=== PATIENT | male | born 1960 | race Caucasian/White ===

== ENCOUNTER → 2017-01-03 | Outpatient (CLI) | payer OTHER ==
[~2017-01-03] MED LIST: CLEOCIN HCL300 MG PO; GLUCOPHAGE500 M1 PO; HUMALOG 751 UNIT/0.0 SC; ULTRAM50 MG PO; [UNRECOGNIZED DRUG - REMARK] PO
[2017-01-03 09:09] LABS: BASO # 0.1 10*3/uL (0.0-0.1); BASO % 0.6 % (0.0-1.0); EOS # 0.2 10*3/uL (0.0-0.4); EOS % 1.9 % (1.0-4.0); HEMATOCRIT 50.7 % (42.0-52.0); HEMOGLOBIN 18.1 g/dl (14.0-18.0); LYMPH # 2.4 10*3/uL (1.3-4.4); LYMPH % 30.8 % (27.0-41.0); MEAN CELL VOLUME 87.9 fl (80.0-94.0); MEAN CORPUSCULAR HGB 31.4 pg (27.0-31.0); MEAN CORPUSCULAR HGB CONC 35.7 g/dl (33.0-37.0); MEAN PLATELET VOLUME 10.6 fl (9.6-12.3); MONO # 0.4 10*3/uL (0.1-1.0); MONO % 5.6 % (3.0-9.0); NEUT # 4.7 10*3/uL (2.3-7.9); NEUT % 60.7 % (47.0-73.0); PLATELET COUNT AUTOMATED 279 10*3/uL (130-400); RED BLOOD COUNT 5.77 10*6/uL (4.50-5.90); RED CELL DISTRI WIDTH 11.6 % (0-14.5); WHITE BLOOD COUNT 7.7 10*3/uL (4.8-10.8)
[2017-01-03 09:16] LABS: BILIRUBIN NEGATIVE (NEGATIVE); BLOOD NEGATIVE (NEGATIVE); CLARITY CLEAR (CLEAR); COLOR YELLOW (YELLOW); GLUCOSE 3+ (NEGATIVE); KETONE 2+ (NEGATIVE); LEUKO ESTERASE NEGATIVE (NEGATIVE); NITRITE NEGATIVE (NEGATIVE); PH 5.5 (5.0-9.0); UROBILINOGEN 0.2 E.U./dl (0.2-1.0)
[2017-01-03 09:20] LABS: ALBUMIN 3.9 gm/dl (3.1-4.5); ALKALINE PHOSPHATASE 83 U/L (45-117); BUN 17 mg/dl (7-24); CHLORIDE 101 mmol/L (98-107); CHOLESTEROL 165 mg/dL (<200); CREATININE 0.94 mg/dL (0.70-1.30); HDL CHOLESTEROL 39 mg/dl (40-60); LDL CHOLESTEROL 93 mg/dL (9-159); POTASSIUM 4.3 mmol/L (3.5-5.1); SGOT/AST 11 IU/L (3-35); SGPT/ALT 20 U/L (12-78); SODIUM 136 mmol/L (136-145); TOTAL PROTEIN 7.4 gm/dL (6.4-8.2); TRIGLYCERIDES 166 mg/dl (<150); VLDL CHOLESTEROL 33 mg/dL (6-40)
[2017-01-03 09:58] LABS: RBC 0-2 rbc/hpf (0-2); WBC 0-2 wbc/hpf (0-5)
[2017-01-03 09:59] LABS: CALCIUM OXALATE CRYSTALS TRACE; EPITHELIAL CELLS 0-2
== END | disposition home or self-care (01) ==
LOC: LAB 08:32
PROVIDERS: Nurse Practitioner Family
DX: E11.9 Type 2 diabetes mellitus without complications (principal); I10 Essential (primary) hypertension; F41.9 Anxiety disorder, unspecified; E78.5 Hyperlipidemia, unspecified

== ENCOUNTER → 2017-09-27 | Outpatient (CLI) | payer OTHER ==
[2017-09-27 13:58] LABS: PTH INTACT 26.5 pg/mL (18.5-88.0)
== END | disposition home or self-care (01) ==
LOC: LAB 11:59
PROVIDERS: Nurse Practitioner Family
DX: E55.9 Vitamin D deficiency, unspecified (principal)

== ENCOUNTER → 2017-12-21 | Outpatient (CLI) | payer OTHER | END | disposition home or self-care (01) | LOC: RAD 09:08 | DX: K59.00 Constipation, unspecified (principal) ==

== ENCOUNTER → 2020-05-10 | Outpatient (CLI) | payer OTHER ==
[2020-05-10 10:09] LABS: ALBUMIN 3.6 gm/dl (3.1-4.5); BUN 18 mg/dl (7-24); CHLORIDE 104 mmol/L (98-107); HDL CHOLESTEROL 40 mg/dl (40-60); POTASSIUM 4.7 mmol/L (3.5-5.1); SGOT/AST 9 IU/L (3-35); SGPT/ALT 21 U/L (12-78); SODIUM 137 mmol/L (136-145); TOTAL PROTEIN 6.5 gm/dL (6.4-8.2)
[2020-05-10 10:22] LABS: ALKALINE PHOSPHATASE 68 U/L (45-117); CHOLESTEROL 112 mg/dL (<200); CREATININE 0.77 mg/dL (0.70-1.30); LDL CHOLESTEROL 52 mg/dL (9-159); TRIGLYCERIDES 98 mg/dl (<150); VLDL CHOLESTEROL 20 mg/dL (6-40)
== END | disposition home or self-care (01) ==
LOC: LAB 09:05
PROVIDERS: ATTEND Physician Assistant Medical
DX: Z00.00 Encounter for general adult medical examination without abnormal findings (principal); E78.5 Hyperlipidemia, unspecified; E11.65 Type 2 diabetes mellitus with hyperglycemia

== ENCOUNTER → 2020-05-28 | Outpatient (CLI) | payer OTHER | END | disposition home or self-care (01) | LOC: US 09:25 | PROVIDERS: ATTEND Physician Assistant Medical | DX: E11.65 Type 2 diabetes mellitus with hyperglycemia (principal); I10 Essential (primary) hypertension; E78.5 Hyperlipidemia, unspecified; R10.11 Right upper quadrant pain ==

== ENCOUNTER → 2020-07-06 | Outpatient (CLI) | payer OTHER | END | disposition home or self-care (01) | LOC: RAD 13:15 | PROVIDERS: ATTEND Chiropractor Orthopedic | DX: M51.34 Other intervertebral disc degeneration, thoracic region (principal); M50.30 Other cervical disc degeneration, unspecified cervical region; M48.02 Spinal stenosis, cervical region; M48.04 Spinal stenosis, thoracic region; M85.88 Other specified disorders of bone density and structure, other site ==

== ENCOUNTER → 2020-09-13 | Outpatient (CLI) | payer OTHER | END | disposition home or self-care (01) | LOC: MRI 13:50 | PROVIDERS: ATTEND Chiropractor Orthopedic | DX: M50.30 Other cervical disc degeneration, unspecified cervical region (principal); M43.12 Spondylolisthesis, cervical region; M48.02 Spinal stenosis, cervical region; M25.78 Osteophyte, vertebrae ==

== ENCOUNTER 2021-04-15 19:43 | Emergency (ER) | payer OTHER ==
[~2021-04-15] VITALS: Ht 180.3 cm; Wt 89.8 kg
[2021-04-15] MEDS ORDERED: ZESTRIL10 MG PO (19:56)
[2021-04-15] MEDS ORDERED: TRULICITY1.5 MG/0.5 SC (19:56)
== END 2021-04-15 21:03 | disposition home or self-care (01) ==
LOC: ED 19:43
DX: T16.1XXA Foreign body in right ear, initial encounter (principal); Z79.899 Other long term (current) drug therapy; Z90.89 Acquired absence of other organs; X58.XXXA Exposure to other specified factors, initial encounter; Y93.89 Activity, other specified; Y92.89 Other specified places as the place of occurrence of the external cause; Y99.8 Other external cause status

== ENCOUNTER → 2023-10-25 | Outpatient (CLI) | payer BC ==
[~2023-10-25] MED LIST changes: +TRULICITY1.5 MG/0.5 SC; +ZESTRIL10 MG PO
== END | disposition home or self-care (01) ==
LOC: US 12:39
PROVIDERS: ATTEND Urology
DX: N43.2 Other hydrocele (principal); N50.3 Cyst of epididymis; N40.0 Benign prostatic hyperplasia without lower urinary tract symptoms; N28.89 Other specified disorders of kidney and ureter